=== PATIENT | female | born 1995 | race Caucasian/White ===

== ENCOUNTER 2018-05-23 03:09 | Emergency (ER) | payer BC, OTHER ==
[2018-05-23 03:16] VITALS: TEMP 36.8
[2018-05-23 03:57] LABS: BLOOD UREA NITROGEN 13 mg/dl (7-18); CALCIUM 8.1 mg/dl (8.5-10.1); CARBON DIOXIDE 22 mmol/L (21-32); CREATININE 0.99 mg/dl (0.60-1.20); GLUCOSE 125 mg/dl (70-99); POTASSIUM 3.1 mmol/L (3.5-5.1); SODIUM 137 mmol/L (136-145)
--- NOTE | 2018-05-23 04:05 | EMERGENCY ROOM VISIT NOTE ---
History First contact with patient: 03:13 Chief Complaint: ALCOHOL OVERDOSE Stated Complaint: ALCOHOL OVERDOSE Nursing Triage Summary: PD called for unconcious etoh overdose. Pt woke up and ran from police. Refusing to tell police her name. Drank unknown ammount of alcohol. History of Present Illness The patient is a 22 year old female who presents to the Emergency Room via police for evaluation of probable alcohol intoxication. Per police, the patient was found passed out in a building and they were called. She initially ran from police. She adamantly denies drinking any alcohol tonight. She denies drug use or trauma. Review of Systems Review of systems is limited secondary to patient's intoxicated state. Past Medical/Surgical History Medical Problems: (1) No significant active problems Social History Smoking Status: Unknown if Ever Smoked Housing Status: lives with roommate Occupation Status: [employer] student Current/Historical Medications Scheduled Control Pills ( Control Pills), 1 TAB PO DAILY Cetirizine (Zyrtec), 10 MG PO DAILY Loratadine (Claritin), 10 MG PO DAILY Physical Exam Vital Signs Date Time Temp Pulse Resp B/P (MAP) Pulse Ox O2 Delivery O2 Flow Rate FiO2 05/23/18 11:36 104 16 106/74 98 05/23/18 10:15 103 16 112/59 98 Room Air 05/23/18 08:12 107 16 107/68 98 Room Air 05/23/18 07:01 84 16 95/68 98 Room Air 05/23/18 05:16 85 18 89/43 92 05/23/18 03:22 Room Air 05/23/18 03:19 128 05/23/18 03:16 36.8 134 20 112/79 95 Room Air Physical Exam VITALS: Vitals are noted on the nurse's note and reviewed by myself. Vital signs stable. GENERAL: This is a 22-year-old female, lying prone in bed, crying, appears to be visibly intoxicated, smells of ETOH. SKIN: The skin was without erythema, edema, or bruising. HEAD: Normocephalic atraumatic. EARS: External auditory canals clear. No hemotympanum. EYES: Pupils equal round and reactive to light and accommodation. NOSE: No deformities noted. MOUTH: No loose or chipped teeth. NECK: No cervical spine tenderness. HEART: Regular rate and rhythm without murmurs gallops or rubs. LUNGS: Clear to auscultation bilaterally without wheezes, rales or rhonchi. ABDOMEN: Soft, nontender. MUSCULOSKELETAL: Full range of motion throughout. Strength intact throughout. NEURO: Patient was alert and oriented to person place and time. Speech slurred. Gross sensation intact. Patient crying throughout exam but otherwise cooperative. Medical Decision & Procedures Laboratory Results 05/23/18 03:22 Test 05/23/18 03:22 Anion Gap 9.0 mmol/L (3-11) Estimated GFR () 95.1 Estimated GFR (Non- 82.0 BUN/Creatinine Ratio 13.1 (10-20) Calcium Level 8.1 mg/dl (8.5-10.1) Human Chorionic Gonadotropin, Qual NEG (NEG) Ethyl Alcohol mg/dL 333.0 mg/dl (0-3) Medical Decision Differential diagnosis includes alcohol intoxication, drug use, infection, hypoglycemia, head trauma, among others. The patient is a 22-year-old female who presents today for evaluation of probable alcohol intoxication. Labs revealed an alcohol of 333. Kidney function was found to be within normal limits. Patient is hypokalemic with potassium of 3.1. Labs were otherwise unremarkable. There is no evidence of head trauma or infection on exam. The patient was placed on the frame carver spindle and placed in the prone position. They were monitored for an appropriate amount of time and when they were more sober, they were reassessed and discharged home with her brother, who is sober. The patient was advised not to drink anymore alcohol today and to follow-up with [facility] for any further concerns. Medication Reconcilliation Current Medication List: was personally reviewed by me Blood Pressure Screening Patient's blood pressure: Low blood pressure Impression Primary Impression: Alcoholic intoxication Departure Information Dispostion Home / Self-Care Condition GOOD Patient Instructions [facility]: [employer] Students and Alcohol Related Visits, My [employer] Additional Instructions You were evaluated in emergency department for intoxication. This is a sign of Alcohol Abuse and should not be taken lightly. You had a blood alcohol level that was significantly elevated. Over the next 24 hours keep well hydrated and eat light meals. Don't drink any more alcohol. This is important. Please discuss this visit with your Primary Care Provider, [facility] and/or your loved ones. Unless an exceptional circumstance, the Hospital DOES NOT contact anyone during your visit, nor is your Protected Medical Information released to anyone without your approval/request. This means we do not contact your Parents, the Police, [facility], etc. However, you will likely receive a bill from the Hospital and/or your Insurance company, which will usually be sent to the Primary Policy [place] (often one's Parents) If your incident was on campus, or if the Police were involved, they will often contact the University to make them aware of what happened. Often this will result in you being required to take Alcohol Education classes (ie BASICS class) . Please see information given to you at discharge regarding contact for this. If the Police were involved you will likely be cited for public intoxication. Please contact either [facility] Police or the [place] Police for further information. Call 911 or return to Emergency Department if you develop: Passing out, difficulty breathing, many episodes of vomiting, blood in vomit or stool, abdominal pain, fevers, or other severe symptoms. We are always here to help if you feel you need further evaluation or treatment. Problem Qualifiers Primary Impression: Alcoholic intoxication Complication of substance-induced condition: uncomplicated Qualified Codes: F10.920 - Alcohol use, unspecified with intoxication, uncomplicated
[2018-05-23] MEDS ORDERED: CETI10TA84 PO (04:15)
[2018-05-23] MEDS ORDERED: CLR10 PO (04:15)
[2018-05-23] MEDS ORDERED: BCPILLS PO (04:15)
[2018-05-23 11:36] VITALS: BP 106/74; PULSE 104; O2SAT 98
== END 2018-05-23 11:37 | disposition home or self-care (01) ==
LOC: EDBD 03:09 → C.EDA 03:12
DX: F10.129 Alcohol abuse with intoxication, unspecified (principal); Z79.3 Long term (current) use of hormonal contraceptives; Z79.899 Other long term (current) drug therapy